=== PATIENT | male | born 1965 | race Two or more races ===

== ENCOUNTER 2024-02-23 13:14 | Outpatient (AMB) | payer MEDICAID, SELFPAY ==
[2024-02-23 13:38] VITALS: BP 142/86; PULSE 91; RESP 18; TEMP 36.8; O2SAT 94; BMI 34.0
--- NOTE | 2024-02-23 13:38 | ORTHONT_ITS ---
Vital signs 02/23/24 13:38 Height 1.83 m Height Method Stated Weight 113.993 kg Weight Measurement Method Standing Scale BMI 34.0 BP 142/86 H Blood Pressure Source Automatic Cuff Blood Pressure Location Right Upper Arm Position Sitting Respiration 18 Pulse 91 Pulse Source Monitor Temp 98.2 F Temp Source Temporal Artery Scan Pulse Oximetry (%) 94 L Oxygen Delivery Method Room Air Med/Allergies Allergies & Medications Allergies NKA* Allergy (Uncoded 02/23/24 13:40) Medication Reconciliation Buspirone * (BUSPAR *) 10 mg PO BID ##60 12/25/16 [History Confirmed 02/23/24] Divalproex Sodium (Divalproex Sodium Er) 250 mg PO QDAY ##180 12/25/16 [History Confirmed 02/23/24] Esomeprazole Magnesium (Nexium 24Hr) 20 mg PO QDAY ##60 12/25/16 [History Confirmed 02/23/24] Fluoxetine Hcl 30 mg PO QDAY ##30 12/25/16 [History Confirmed 02/23/24] Pantoprazole Sodium 20 mg PO QDAY ##30 12/25/16 [History Confirmed 02/23/24] aripiprazole 20 mg tablet (Abilify) 20 mg PO QDAY ##30 12/25/16 [History Confirmed 02/23/24] lansoprazole 15 mg capsule,delayed release (Prevacid 24Hr) 15 mg PO QDAY ##30 12/25/16 [History Confirmed 02/23/24] Subjective Visit Visit for: new patient and knee (BILATERAL) Immunization / Flu Flu Vaccine in the Last 12 Months: Yes Flu Vaccine Exclusion Criteria: Already Received History of Present Illness Chief complaint: BILATERAL KNEE PAIN Alex is a pleasant 58-year-old maleWith right knee pain Pain. He had a history of a right knee replacement 10 years ago and had a twisting injury and pain since then. He reports he has been doing physical therapy and taking anti- inflammatories. The pain has gotten better. Pain Pain level (0-10): 2 Pain duration: ON AND OFF Pain location: inside (medial) Pain quality: sharp, dull and aching Pain timing: increases with activity (RIGHT KNEE) Associated signs & symptoms: numbness (BILATERAL KNEE) Ambulatory data Ambulatory device: none Treatments Improvement with previous injections: No Number of Physical Therapy sessions: 12 Improvement with PT: No Improvement with NSAIDS: no Review of Systems Review of Systems: All systems negative unless otherwise noted in HPI. Exam Exam Patient is in no acute distress and is cooperative with the examination today. Breathing is nonlabored. Patient has a normal mood and affect. The patient has a gait that is [nonantalgic] Bilateral extremities were evaluated and demonstrates sensation intact to light touch. Palpable pedal pulses are present. No significant edema is present. Bilateral hips were examined. The patient has no pain with log roll of the hips. Internal rotation to 30 degrees and external rotation to 30 degrees is painless. Negative FADIR. Bilateral knee incisions are clean dry and intact. Left knee range of motion is 0 to 100 degrees. Right knee range of motion is also 0 to 100 degrees. There is greater than 5 mm of instability on the left than the right. Instability is in the coronal plane Patient has no x-rays to review today Assessment and Plan Problem List (1) Pain in right knee: Status: Acute Plan: Patient is a 58-year-old male with a history of a right total knee replacement 13 years ago. He had 3 months of right knee pain after twisting injury. Is improved somewhat since anti-inflammatories. We would like to get new x-rays to see what his knee looks like. It has actually improved somewhat which is promising. The pain is almost back to normal. Office Procedures GNS Level of Care Nursing/Assessment Patient Status: Initial/New Patient Nursing Assessment/Reassesment: Medication Reconciliation, Update PMH in EMR and Vital Signs Coordination of Care: Complex Care and Chronic Disease 1-5, Education Complex Pt/Fam, Consent,records obtained, informed consent, 1 Ins Authorization, Lab and Imaging orders, Results/Orders obtained and Staff clarify orders New Patient Charge New Patient Point Assignment: 1124 New Patient Point Charge: [employer] Level 4 ([id number]) Past Medical History Past Medical History Have you ever been diagnosed with any of the following: Surgical History Pacemaker: Yes
== END 2024-02-23 13:50 | disposition home or self-care (01) ==
LOC: HODSRG 13:14
PROVIDERS: PCP Internal Medicine; Referring Provider Internal Medicine; Supervising Provider Orthopaedic Surgery Adult Reconstructive Orthopaedic Surgery; Visit Provider Orthopaedic Surgery Adult Reconstructive Orthopaedic Surgery
DX: M25.561 Pain in right knee (principal); Z96.651 Presence of right artificial knee joint
CPT/HCPCS: 99204; G0463

== ENCOUNTER 2024-06-07 14:11 | Outpatient (AMB) | payer MEDICAID, SELFPAY ==
[2024-06-07 14:34] VITALS: BP 115/89; PULSE 85; RESP 18; TEMP 36.6; O2SAT 95; BMI 32.6
--- NOTE | 2024-06-07 14:34 | ORTHONT_ITS ---
Vital signs 06/07/24 14:34 Height 1.83 m Height Method Stated Weight 109.344 kg Weight Measurement Method Standing Scale BMI 32.6 BP 115/89 H Blood Pressure Source Automatic Cuff Blood Pressure Location Right Upper Arm Position Sitting Respiration 18 Pulse 85 Pulse Source Monitor Temp 97.8 F Temp Source Temporal Artery Scan Pulse Oximetry (%) 95 Oxygen Delivery Method Room Air Med/Allergies Allergies & Medications Allergies NKA* Allergy (Uncoded 06/07/24 14:35) Medication Reconciliation Buspirone * (BUSPAR *) 10 mg PO BID ##60 12/25/16 [History Confirmed 06/07/24] Divalproex Sodium (Divalproex Sodium Er) 250 mg PO QDAY ##180 12/25/16 [History Confirmed 06/07/24] Esomeprazole Magnesium (Nexium 24Hr) 20 mg PO QDAY ##60 12/25/16 [History Confirmed 06/07/24] Fluoxetine Hcl 30 mg PO QDAY ##30 12/25/16 [History Confirmed 06/07/24] Pantoprazole Sodium 20 mg PO QDAY ##30 12/25/16 [History Confirmed 06/07/24] aripiprazole 20 mg tablet (Abilify) 20 mg PO QDAY ##30 12/25/16 [History Confirmed 06/07/24] lansoprazole 15 mg capsule,delayed release (Prevacid 24Hr) 15 mg PO QDAY ##30 12/25/16 [History Confirmed 06/07/24] Exam Exam Patient is in no acute distress and is cooperative with the examination today. Breathing is nonlabored. Patient has a normal mood and affect. The patient has a gait that is [nonantalgic] Bilateral extremities were evaluated and demonstrates sensation intact to light touch. Palpable pedal pulses are present. No significant edema is present. Bilateral hips were examined. The patient has no pain with log roll of the hips. Internal rotation to 30 degrees and external rotation to 30 degrees is painless. Negative FADIR. Bilateral knee incisions are clean dry and intact. Left knee range of motion is 0 to 100 degrees. Right knee range of motion is also 0 to 100 degrees. There is greater than 5 mm of instability on the left than the right. Instability is in the coronal plane X-rays demonstrate severe osteoarthritis of the right knee. Yeah I think there are 2 screws. He has [id number] on the medial side Assessment and Plan Problem List (1) Pain in right knee: Status: Acute Plan: Patient is a 58-year-old male with a history of a right Knee open reduction internal fixation of a tibial plateau fracture. There are 2 screws going from a lateral to medial direction. There is significant arthritis. We Discussed n onoperative and operative options. We will start with cortisone injections. He has already tried physical therapy and anti-inflammatories Recommend knee cortisone injection as patient would like to proceed with conservative treatment at this time. The risks and benefits of the procedure were reviewed with the patient and patient gave verbal consent to continue with the procedure. Procedure: performed by Dr. Hwang Using sterile technique the Right knee was thoroughly prepped with alcohol, and approximately 1 cc of Kenalog 40 mg/mL and 4 cc of 1% lidocaine was injected without resistance into the medial tibial femoral joint space. The patient tolerated the procedure. We will order x-rays of the left knee as well Office Procedures GNS Level of Care Nursing/Assessment Patient Status: Established Patient Nursing Assessment/Reassesment: Medication Reconciliation, Update PMH in EMR and Vital Signs Coordination of Care: Complex Care and Chronic Disease 1-5, Education Complex Pt/Fam, Consent,records obtained, informed consent, Results/Orders obtained and Staff clarify orders Established Patient Charge Established Patient Point Assignment: 95 Established Patient Point Charge: EP Level 3 (80-115) Surgical Proc/IM SQ injection Major Surgical Procedure: Yes (KNEE INJECTION ) MA Intake Visit Data Collection New Patient or Established: Established Patient (seen at [facility] within 3 years) Reason for Visit:: REQ KNEE INJECTION Seen by Clinical Staff ONLY (RN/MA): No Verbal consent obtained for Telemed visit?: No Ophthalmology Technician Required: No PCP or OBGYN visit in last 3 months: Yes Hx Now: No Do You Feel Safe at Home: Yes Authorities Contacted: N/A Questionairres Past Medical History Past Medical History Have you ever been diagnosed with any of the following: Respiratory Problems Smoking: No Smoking Exposure: No Surgical History Pacemaker: Yes Subjective Visit Visit for: follow up visit, knee and injections Immunization / Flu Flu Vaccine in the Last 12 Months: No Flu Vaccine Exclusion Criteria: No Exclusion Criteria History of Present Illness Chief complaint: REQ KNEE INJECTION Patient is a 58 yo male with right kneeAnd bilateral knee arthritis. He reports the left knee pain has been bothering him recently. He prior right knee injections and helped for quite a while. He would like repeat right knee injections today. Pain Pain level (0-10): 4 Pain location: inside (medial), outside (lateral) and anterior Pain quality: sharp Pain timing: increases with activity Ambulatory data Ambulatory device: none Treatments Improvement with previous injections: No Improvement with PT: No Improvement with NSAIDS: no Review of Systems Review of Systems: All systems negative unless otherwise noted in HPI.
--- NOTE | 2024-06-07 14:47 | XR_ITS ---
Examination: Knee bilateral, 8 views Technique: Knee AP, lateral, oblique, axial H knee total 8 views Date and time of exam: June 07, 2024 1456 hrs. Indications: Bilateral knee pain beginning one month ago. Findings: Severe narrowing [id number] medial joint space right knee Advanced osteoarthritis lateral and right patellofemoral joints Orthopedic screws traverse the proximal tibia Total left knee arthroplasty. Satisfactory alignment. No fracture No loosening of the prosthetic components Impression: Advanced right knee tricompartment osteoarthritis including severe narrowing, [id number], medial joint space right knee
== END 2024-06-07 14:50 | disposition home or self-care (01) ==
LOC: HODSRG 14:11
PROVIDERS: PCP Internal Medicine; Referring Provider Internal Medicine; Supervising Provider Orthopaedic Surgery Adult Reconstructive Orthopaedic Surgery; Visit Provider Orthopaedic Surgery Adult Reconstructive Orthopaedic Surgery
DX: M25.561 Pain in right knee (principal); M17.11 Unilateral primary osteoarthritis, right knee
CPT/HCPCS: 20610; 73564; 99213; J3301; J3490; G0463

== ENCOUNTER 2024-06-28 14:20 | Outpatient (AMB) | payer MEDICAID, SELFPAY ==
[2024-06-28 14:32] VITALS: BP 150/87; PULSE 73; RESP 18; TEMP 36.2; O2SAT 96; BMI 32.8
--- NOTE | 2024-06-28 14:32 | PD.ORTHCLVIS ---
Vital signs 06/28/24 14:32 Height 1.83 m Height Method Stated Weight 109.798 kg Weight Measurement Method Standing Scale BMI 32.8 BP 150/87 H Blood Pressure Source Automatic Cuff Blood Pressure Location Left Upper Arm Position Sitting Respiration 18 Pulse 73 Pulse Source Monitor Temp 97.2 F Temp Source Temporal Artery Scan Pulse Oximetry (%) 96 Oxygen Delivery Method Room Air Med/Allergies Allergies & Medications Allergies NKA* Allergy (Uncoded 06/28/24 14:33) Medication Reconciliation Buspirone * (BUSPAR *) 10 mg PO BID ##60 12/25/16 [History Confirmed 06/28/24] Divalproex Sodium (Divalproex Sodium Er) 250 mg PO QDAY ##180 12/25/16 [History Confirmed 06/28/24] Esomeprazole Magnesium (Nexium 24Hr) 20 mg PO QDAY ##60 12/25/16 [History Confirmed 06/28/24] Fluoxetine Hcl 30 mg PO QDAY ##30 12/25/16 [History Confirmed 06/28/24] Pantoprazole Sodium 20 mg PO QDAY ##30 12/25/16 [History Confirmed 06/28/24] aripiprazole 20 mg tablet (Abilify) 20 mg PO QDAY ##30 12/25/16 [History Confirmed 06/28/24] lansoprazole 15 mg capsule,delayed release (Prevacid 24Hr) 15 mg PO QDAY ##30 12/25/16 [History Confirmed 06/28/24] Exam Exam Patient is in no acute distress and is cooperative with the examination today. Breathing is nonlabored. Patient has a normal mood and affect. The patient has a gait that is [nonantalgic] Bilateral extremities were evaluated and demonstrates sensation intact to light touch. Palpable pedal pulses are present. No significant edema is present. Bilateral hips were examined. The patient has no pain with log roll of the hips. Internal rotation to 30 degrees and external rotation to 30 degrees is painless. Negative FADIR. Bilateral knee incisions are clean dry and intact. Left knee range of motion is 0 to 100 degrees. Right knee range of motion is also 0 to 100 degrees. There is greater than 5 mm of instability on the left than the right. Instability is in the coronal plane X-rays demonstrate severe osteoarthritis of the right knee. Yeah I think there are 2 screws. He has [id number] on the medial side. The left knee demonstrates a constrained total knee replacement in good alignment position Assessment and Plan Problem List (1) Pain in right knee: Status: Acute Plan: Patient is a 58-year-old male with a history of a right Knee open reduction internal fixation of a tibial plateau fracture. There are 2 screws going from a lateral to medial direction. There is significant arthritis. We Discussed nonoperative and operative options. We discussed that he has a left total knee replacement as well. They appear to be no evidence of loosening and appears to be stable. I would recommend watching this and physical therapy Office Procedures GNS Level of Care Nursing/Assessment Patient Status: Established Patient Nursing Assessment/Reassesment: Medication Reconciliation, Update PMH in EMR and Vital Signs Coordination of Care: Complex Care and Chronic Disease 1-5, Education Complex Pt/Fam, Consent,records obtained, informed consent, Results/Orders obtained and Staff clarify orders Established Patient Charge Established Patient Point Assignment: 95 Established Patient Point Charge: EP Level 3 (80-115) MA Intake Visit Data Collection New Patient or Established: Established Patient (seen at [facility] [place] within 3 years) Reason for Visit:: XRAY RESULTS/F/U Seen by Clinical Staff ONLY (RN/MA): No Verbal consent obtained for Telemed visit?: No Telecommunications Network Planner Required: No PCP or OBGYN visit in last 3 months: Yes Hx Now: No Do You Feel Safe at Home: Yes Authorities Contacted: N/A Questionairres Past Medical History Past Medical History Have you ever been diagnosed with any of the following: Respiratory Problems Smoking: No Smoking Exposure: No Surgical History Pacemaker: Yes Subjective Visit Visit for: follow up visit and x-rays (RESULTS) Immunization / Flu Flu Vaccine in the Last 12 Months: No Flu Vaccine Exclusion Criteria: No Exclusion Criteria History of Present Illness Chief complaint: REQ KNEE INJECTION Patient is a 58 yo male with right kneeAnd bilateral knee arthritis. He reports the left knee pain has been bothering him recently. He prior right knee injections and helped for quite a while. He is doing well with his right knee injection Pain Pain level (0-10): 0 Pain location: inside (medial), outside (lateral) and anterior Pain quality: sharp Pain timing: increases with activity Associated signs & symptoms: none Ambulatory data Ambulatory device: none Treatments Improvement with previous injections: No Improvement with PT: No Improvement with NSAIDS: no Review of Systems Review of Systems: All systems negative unless otherwise noted in HPI.
== END 2024-06-28 14:56 | disposition home or self-care (01) ==
PROVIDERS: PCP Internal Medicine; Referring Provider Internal Medicine; Supervising Provider Orthopaedic Surgery Adult Reconstructive Orthopaedic Surgery; Visit Provider Orthopaedic Surgery Adult Reconstructive Orthopaedic Surgery
DX: M17.0 Bilateral primary osteoarthritis of knee (principal); Z95.0 Presence of cardiac pacemaker
CPT/HCPCS: 99213; G0463

== ENCOUNTER 2024-09-27 13:03 | Outpatient (AMB) | payer MEDICAID, SELFPAY ==
[2024-09-27 13:16] VITALS: BP 163/102; PULSE 74; RESP 18; TEMP 36.7; O2SAT 93; BMI 35.3
--- NOTE | 2024-09-27 13:16 | PD.ORTHCLVIS ---
Vital signs 09/27/24 13:16 Height 1.83 m Height Method Stated Weight 118.388 kg Weight Measurement Method Standing Scale BMI 35.3 BP 163/102 H Blood Pressure Source Automatic Cuff Blood Pressure Location Left Upper Arm Position Sitting Respiration 18 Pulse 74 Pulse Source Monitor Temp 98.1 F Temp Source Temporal Artery Scan Pulse Oximetry (%) 93 L Oxygen Delivery Method Room Air Med/Allergies Allergies & Medications Allergies NKA* Allergy (Uncoded 09/27/24 13:17) Medication Reconciliation Buspirone * (BUSPAR *) 10 mg PO BID ##60 12/25/16 [History Confirmed 09/27/24] Divalproex Sodium (Divalproex Sodium Er) 250 mg PO QDAY ##180 12/25/16 [History Confirmed 09/27/24] Esomeprazole Magnesium (Nexium 24Hr) 20 mg PO QDAY ##60 12/25/16 [History Confirmed 09/27/24] Fluoxetine Hcl 30 mg PO QDAY ##30 12/25/16 [History Confirmed 09/27/24] Pantoprazole Sodium 20 mg PO QDAY ##30 12/25/16 [History Confirmed 09/27/24] aripiprazole 20 mg tablet (Abilify) 20 mg PO QDAY ##30 12/25/16 [History Confirmed 09/27/24] lansoprazole 15 mg capsule,delayed release (Prevacid 24Hr) 15 mg PO QDAY ##30 12/25/16 [History Confirmed 09/27/24] Exam Exam Patient is in no acute distress and is cooperative with the examination today. Breathing is nonlabored. Patient has a normal mood and affect. The patient has a gait that is [nonantalgic] Bilateral extremities were evaluated and demonstrates sensation intact to light touch. Palpable pedal pulses are present. No significant edema is present. Bilateral hips were examined. The patient has no pain with log roll of the hips. Internal rotation to 30 degrees and external rotation to 30 degrees is painless. Negative FADIR. Bilateral knee incisions are clean dry and intact. Left knee range of motion is 0 to 100 degrees. Right knee range of motion is also 0 to 100 degrees. There is greater than 5 mm of instability on the left than the right. Instability is in the coronal plane X-rays demonstrate severe osteoarthritis of the right knee. Yeah I think there are 2 screws. He has [id number] on the medial side. The left knee demonstrates a constrained total knee replacement in good alignment position Assessment and Plan Problem List (1) Pain in right knee: Status: Acute Plan: Patient is a 58-year-old male with a history of a right Knee open reduction internal fixation of a tibial plateau fracture. There are 2 screws going from a lateral to medial direction. There is significant arthritis. We Discussed nonoperative and operative options. We discussed that he has a left total knee replacement as well. They appear to be no evidence of loosening and appears to be stable. I would recommend watching this and physical therapy Plan He is gained 25 pounds since we last saw him in 2 months. We discussed with him that this is not a great sign. We want him to lose weight if possible. In addition, I discussed with him that his speech is very pressured And I am worried about his mental state. He is very aggressive and has very pressured speech. Hopefully he can get optimized. We will consider surgery if he can get back to his original weight and he has stabilized mentally. Office Procedures GNS Level of Care Nursing/Assessment Patient Status: Established Patient Nursing Assessment/Reassesment: Medication Reconciliation, Update PMH in EMR and Vital Signs Coordination of Care: Complex Care and Chronic Disease 1-5, Education Complex Pt/Fam, Consent,records obtained, informed consent, Results/Orders obtained and Staff clarify orders Established Patient Charge Established Patient Point Assignment: 95 Established Patient Point Charge: EP Level 3 (80-115) MA Intake Visit Data Collection New Patient or Established: Established Patient (seen at [facility] within 3 years) Reason for Visit:: RIGHT KNEE FOLLOW UP Seen by Clinical Staff ONLY (RN/MA): No PCP or OBGYN visit in last 3 months: Yes Hx Now: No Do You Feel Safe at Home: Yes Authorities Contacted: N/A Questionairres Past Medical History Past Medical History Have you ever been diagnosed with any of the following: Respiratory Problems Smoking: No Smoking Exposure: No Surgical History Pacemaker: Yes Subjective Visit Visit for: follow up visit and knee Immunization / Flu Flu Vaccine in the Last 12 Months: No Flu Vaccine Exclusion Criteria: No Exclusion Criteria History of Present Illness Chief complaint: REQ KNEE INJECTION Patient is a 58 yo male with right kneeAnd bilateral knee arthritis. He reports the left knee pain has been bothering him recently. He had a prior right knee injection and it helped for quite a while. Pain Pain level (0-10): 5 Pain duration: ON AND OFF Pain location: inside (medial) and anterior Pain quality: dull and aching Pain timing: increases with activity Associated signs & symptoms: none Ambulatory data Ambulatory device: none Treatments Improvement with previous injections: No Improvement with PT: No Improvement with NSAIDS: no Review of Systems Review of Systems: All systems negative unless otherwise noted in HPI.
== END 2024-09-27 13:30 | disposition home or self-care (01) ==
LOC: HODSRG 13:03
PROVIDERS: PCP Internal Medicine; Referring Provider Internal Medicine; Supervising Provider Orthopaedic Surgery Adult Reconstructive Orthopaedic Surgery; Visit Provider Orthopaedic Surgery Adult Reconstructive Orthopaedic Surgery
DX: M25.561 Pain in right knee (principal); S82.141D Displaced bicondylar fracture of right tibia, subsequent encounter for closed fracture with routine healing; X58.XXXD Exposure to other specified factors, subsequent encounter
CPT/HCPCS: 99213; G0463

== ENCOUNTER 2025-01-12 13:07 | Outpatient (AMB) | payer MEDICAID, SELFPAY ==
--- NOTE | 2025-01-12 13:22 | PD.ORTHCLVIS ---
Vital signs 01/12/25 13:23 Height 1.83 m Height Method Stated Weight 113.597 kg Weight Measurement Method Standing Scale BMI 33.9 BP 123/79 Blood Pressure Source Automatic Cuff Blood Pressure Location Left Upper Arm Position Sitting Respiration 18 Pulse 76 Pulse Source Monitor Temp 97.6 F Temp Source Temporal Artery Scan Pulse Oximetry (%) 92 L Oxygen Delivery Method Room Air Med/Allergies Allergies & Medications Allergies NKA* Allergy (Uncoded 01/12/25 13:34) Medication Reconciliation Buspirone * (BUSPAR *) 10 mg PO BID ##60 12/25/16 [History Confirmed 01/12/25] Divalproex Sodium (Divalproex Sodium Er) 250 mg PO QDAY ##180 12/25/16 [History Confirmed 01/12/25] Esomeprazole Magnesium (Nexium 24Hr) 20 mg PO QDAY ##60 12/25/16 [History Confirmed 01/12/25] Fluoxetine Hcl 30 mg PO QDAY ##30 12/25/16 [History Confirmed 01/12/25] Pantoprazole Sodium 20 mg PO QDAY ##30 12/25/16 [History Confirmed 01/12/25] aripiprazole 20 mg tablet (Abilify) 20 mg PO QDAY ##30 12/25/16 [History Confirmed 01/12/25] lansoprazole 15 mg capsule,delayed release (Prevacid 24Hr) 15 mg PO QDAY ##30 12/25/16 [History Confirmed 01/12/25] Exam Exam Patient is in no acute distress and is cooperative with the examination today. Breathing is nonlabored. Patient has a normal mood and affect. The patient has a gait that is [nonantalgic] Bilateral extremities were evaluated and demonstrates sensation intact to light touch. Palpable pedal pulses are present. No significant edema is present. Bilateral hips were examined. The patient has no pain with log roll of the hips. Internal rotation to 30 degrees and external rotation to 30 degrees is painless. Negative FADIR. Bilateral knee incisions are clean dry and intact. Left knee range of motion is 0 to 100 degrees. Right knee range of motion is also 0 to 100 degrees. There is greater than 5 mm of instability on the left than the right. Instability is in the coronal plane X-rays demonstrate severe osteoarthritis of the right knee. Yeah I think there are 2 screws. He has [id number] on the medial side. The left knee demonstrates a constrained total knee replacement in good alignment position Assessment and Plan Problem List (1) Pain in right knee: Status: Acute Plan: Patient is a 58-year-old male with a history of a right Knee open reduction internal fixation of a tibial plateau fracture. There are 2 screws going from a lateral to medial direction. There is significant arthritis. We Discussed nonoperative and operative options. We discussed that he has a left total knee replacement as well. They appear to be no evidence of loosening and appears to be stable. We will have him get a medical clearance before proceeding with surgery. We will see him in 2 months and he will try to lose more weight. His speech is less pressured today than last time Office Procedures GNS Level of Care Nursing/Assessment Patient Status: Established Patient Nursing Assessment/Reassesment: Medication Reconciliation, Update PMH in EMR and Vital Signs Coordination of Care: Complex Care and Chronic Disease 1-5, Education Complex Pt/Fam, Consent,records obtained, informed consent, Results/Orders obtained and Staff clarify orders Established Patient Charge Established Patient Point Assignment: 95 Established Patient Point Charge: EP Level 3 (80-115) MA Intake Visit Data Collection New Patient or Established: Established Patient (seen at [facility] within 3 years) Reason for Visit:: RIGHT KNEE FOLLOW UP Seen by Clinical Staff ONLY (RN/MA): No PCP or OBGYN visit in last 3 months: Yes Hx Now: No Do You Feel Safe at Home: Yes Authorities Contacted: N/A Questionairres Past Medical History Past Medical History Have you ever been diagnosed with any of the following: Respiratory Problems Smoking: No Smoking Exposure: No Surgical History Pacemaker: Yes Subjective Visit Visit for: follow up visit and knee Immunization / Flu Flu Vaccine in the Last 12 Months: No Flu Vaccine Exclusion Criteria: No Exclusion Criteria History of Present Illness Chief complaint: FOLLOW UP WEIGHTLOSS KNEE PAIN Patient is a 58 yo male with right kneeAnd bilateral knee arthritis. He reports the left knee pain has been bothering him recently. He had a prior right knee injection and it helped for quite a while. Pain Pain level (0-10): 5 Pain duration: ON AND OFF Pain location: inside (medial) and anterior Pain quality: dull and aching Pain timing: increases with activity Associated signs & symptoms: none Ambulatory data Ambulatory device: none Treatments Improvement with previous injections: No Improvement with PT: No Improvement with NSAIDS: no Review of Systems Review of Systems: All systems negative unless otherwise noted in HPI.
[2025-01-12 13:23] VITALS: BP 123/79; PULSE 76; RESP 18; TEMP 36.4; O2SAT 92; BMI 33.9
== END 2025-01-12 13:36 | disposition home or self-care (01) ==
PROVIDERS: PCP Internal Medicine; Referring Provider Internal Medicine; Supervising Provider Orthopaedic Surgery Adult Reconstructive Orthopaedic Surgery; Visit Provider Orthopaedic Surgery Adult Reconstructive Orthopaedic Surgery
DX: M25.562 Pain in left knee (principal); M17.11 Unilateral primary osteoarthritis, right knee; Z96.652 Presence of left artificial knee joint; M25.561 Pain in right knee
CPT/HCPCS: 99213; G0463

== ENCOUNTER 2025-03-14 13:12 | Outpatient (AMB) | payer MEDICAID, SELFPAY ==
--- NOTE | 2025-03-14 13:31 | ORTHONT_ITS ---
Vital signs 03/14/25 13:32 Height 1.83 m Height Method Stated Weight 110.818 kg Weight Measurement Method Standing Scale BMI 33.0 BP 117/81 Blood Pressure Source Automatic Cuff Blood Pressure Location Left Upper Arm Position Sitting Respiration 18 Pulse 75 Pulse Source Monitor Temp 98.0 F Temp Source Temporal Artery Scan Pulse Oximetry (%) 92 L Oxygen Delivery Method Room Air Med/Allergies Allergies & Medications Allergies NKA* Allergy (Uncoded 03/14/25 13:32) Medication Reconciliation Buspirone * (BUSPAR *) 10 mg PO BID ##60 12/25/16 [History Confirmed 03/14/25] Divalproex Sodium (Divalproex Sodium Er) 250 mg PO QDAY ##180 12/25/16 [History Confirmed 03/14/25] Esomeprazole Magnesium (Nexium 24Hr) 20 mg PO QDAY ##60 12/25/16 [History Confirmed 03/14/25] Fluoxetine Hcl 30 mg PO QDAY ##30 12/25/16 [History Confirmed 03/14/25] Pantoprazole Sodium 20 mg PO QDAY ##30 12/25/16 [History Confirmed 03/14/25] aripiprazole 20 mg tablet (Abilify) 20 mg PO QDAY ##30 12/25/16 [History C onfirmed 03/14/25] lansoprazole 15 mg capsule,delayed release (Prevacid 24Hr) 15 mg PO QDAY ##30 12/25/16 [History Confirmed 03/14/25] Exam Exam Patient is in no acute distress and is cooperative with the examination today. Breathing is nonlabored. Patient has a normal mood and affect. The patient has a gait that is [nonantalgic] Bilateral extremities were evaluated and demonstrates sensation intact to light touch. Palpable pedal pulses are present. No significant edema is present. Bilateral hips were examined. The patient has no pain with log roll of the hips. Internal rotation to 30 degrees and external rotation to 30 degrees is painless. Negative FADIR. Bilateral knee incisions are clean dry and intact. Left knee range of motion is 0 to 100 degrees. Right knee range of motion is also 0 to 100 degrees. There is greater than 5 mm of instability on the left than the right. Instability is in the coronal plane X-rays demonstrate severe osteoarthritis of the right knee. there are 2 screws. He has [id number] on the medial side. The left knee demonstrates a constrained total knee replacement in good alignment position Assessment and Plan Problem List (1) Pain in right knee: Status: Acute Plan: Patient is a 58-year-old male with a history of a right Knee open reduction internal fixation of a tibial plateau fracture. There are 2 screws going from a lateral to medial direction. There is significant arthritis. We Discussed nonoperative and operative options. We discussed that he has a left total knee replacement as well. They appear to be no evidence of loosening and appears to be stable. We will have him get a medical clearance before proceeding with surgery. He has not received medical clearance yet as he switched doctors Office Procedures GNS Level of Care Nursing/Assessment Patient Status: Established Patient Nursing Assessment/Reassesment: Medication Reconciliation, Update PMH in EMR and Vital Signs Coordination of Care: Complex Care and Chronic Disease 1-5, Education Complex Pt/Fam, Consent,records obtained, informed consent, Results/Orders obtained and Staff clarify orders Established Patient Charge Established Patient Point Assignment: 95 Established Patient Point Charge: EP Level 3 (80-115) MA Intake Visit Data Collection New Patient or Established: Established Patient (seen at [facility] within 3 years) Reason for Visit:: R KNEE PAIN/WEIGHTLOSS FU/CLEARANCE Seen by Clinical Staff ONLY (RN/MA): No PCP or OBGYN visit in last 3 months: Yes Hx Now: No Do You Feel Safe at Home: Yes Authorities Contacted: N/A Questionairres Past Medical History Past Medical History Have you ever been diagnosed with any of the following: Respiratory Problems Smoking: No Smoking Exposure: No Surgical History Pacemaker: Yes Subjective Visit Visit for: follow up visit and knee Immunization / Flu Flu Vaccine in the Last 12 Months: No Flu Vaccine Exclusion Criteria: No Exclusion Criteria History of Present Illness Chief complaint: FOLLOW UP WEIGHTLOSS KNEE PAIN Patient is a 58 yo male with right kneeAnd bilateral knee arthritis. He reports the left knee pain has been bothering him recently. He had a prior right knee injection and it helped for quite a while. Pain Pain level (0-10): 5 Pain duration: ON AND OFF Pain location: inside (medial) and anterior Pain quality: dull and aching Pain timing: increases with activity Associated signs & symptoms: none Ambulatory data Ambulatory device: none Treatments Improvement with previous injections: No Improvement with PT: No Improvement with NSAIDS: no Review of Systems Review of Systems: All systems negative unless otherwise noted in HPI.
[2025-03-14 13:32] VITALS: BP 117/81; PULSE 75; RESP 18; TEMP 36.7; O2SAT 92; BMI 33.0
== END 2025-03-14 13:39 | disposition home or self-care (01) ==
LOC: HODSRG 13:12
PROVIDERS: PCP Internal Medicine; Referring Provider Internal Medicine; Supervising Provider Orthopaedic Surgery Adult Reconstructive Orthopaedic Surgery; Visit Provider Orthopaedic Surgery Adult Reconstructive Orthopaedic Surgery
DX: M17.0 Bilateral primary osteoarthritis of knee (principal); M25.562 Pain in left knee; M25.561 Pain in right knee; Z98.890 Other specified postprocedural states
CPT/HCPCS: 99213; G0463